=== PATIENT | female | born 1970 | race Caucasian/White ===

== ENCOUNTER 2019-08-28 13:38 | Emergency (ER) | payer BC ==
[2019-08-28 13:47] VITALS: BP 166/91; PULSE 79; TEMP 97.5; BMI 38.4
--- NOTE | 2019-08-28 14:28 | PDOC ---
History of Present Illness - General Chief Complaint: Ear Problem Stated Complaint: EAR PAIN/ INFECTION Time Seen by Provider: 08/28/19 13:56 History Source: Patient - History of Present Illness Initial Comments: 08/28/19 14:22 49-year-old female history of depression, anxiety, gastritis presents complaining of nasal congestion x2 weeks which has improved with Sudafed, reports coughing when laying down at night. 1 week ago developed muffled ear sounds, ear congestion/clogged sensation. Denies tinnitus, fever, headache, chest pain, shortness of breath, abdominal pain or any other symptoms. Seen at an urgent care last week and was prescribed Augmentin twice daily for otitis media bilaterally. Patient reports symptoms have not improved after completing antibiotic course. ROS: Bilateral muffled and congested ears PE: GENERAL: well-appearing, NAD HEAD: NCAT EYES: Pupils equal, round and reactive to light, sclera anicteric, conjunctiva clear ENT: Bulging right TM, positive cone of light, normal left ear canal, pharynx: no erythema, no exudate, uvula midline NECK: supple CHEST: nontender RESP: clear, no w/r/r CARDIO: rrr, no m/g/r ABD: +BS, soft, nontender, non distended BACK: no midline spinal ttp, no CVAT EXTREMITIES: Normal range of motion, no edema NEUROLOGICAL: Normal speech, normal gait SKIN: Warm, Dry Is this a multiple visit Asthma Patient?: No Past History - Past Medical History Allergies/Adverse Reactions: Allergies Allergy/AdvReac Type Severity Reaction Status Date / Time No Known Allergies Allergy Verified 08/28/19 13:47 COPD: No - Psycho Social/Smoking Cessation Hx Smoking History: Never smoked *Physical Exam - Vital Signs Last Vital Signs Temp Pulse Resp BP Pulse Ox 97.5 F L 79 18 166/91 99 08/28/19 13:42 08/28/19 13:42 08/28/19 13:42 08/28/19 13:42 08/28/19 13:42 Medical Decision Making - Medical Decision Making 08/28/19 14:28 49-year-old female complaining of bilateral ear muffled sounds and congestion x1 week. Treated with Augmentin x5 days after being evaluated at an urgent care center. Patient completed the course of antibiotics 2 days ago. Denies headache, fever, chills, neck pain or any other complaints at this time. Patient taking Sudafed 1 tab twice daily for the past 3 to 4 days with minimal relief. Ear congestion Advised to schedule a follow-up appointment with an ENT specialist If you develop ear pain, fever, headache or any worsening symptoms return to ED Discharge - Discharge Information Problems reviewed: Yes Clinical Impression/Diagnosis: Congestion of both ears Condition: Stable Disposition: HOME - Admission No - Follow up/Referral Referrals: Robbin Whelan MD [Staff Physician] - - Patient Discharge Instructions Additional Instructions: go to [facility] website, enter your information, you can choose a location and schedule an appointment Return to ED if hearing loss, fever, ear pain or worsening symptoms - Post Discharge Activity
== END 2019-08-28 14:46 | disposition home or self-care (01) ==
LOC: JERFT 13:38
DX: H93.8X3 Other specified disorders of ear, bilateral (principal); Z87.19 Personal history of other diseases of the digestive system; Z86.59 Personal history of other mental and behavioral disorders
CPT/HCPCS: 99281-25